=== PATIENT | male | born 1995 | race African-American/Black ===

== ENCOUNTER 2018-01-06 11:23 | Emergency (ER) | payer MEDICAID ==
[~2018-01-06] VITALS: Ht 182.9 cm; Wt 63.5 kg
[2018-01-06 11:30] VITALS: BP 138/64
== END 2018-01-06 12:00 | disposition home or self-care (01) ==
LOC: ER 11:23
DX: J20.9 Acute bronchitis, unspecified (principal); F12.10 Cannabis abuse, uncomplicated